=== PATIENT | female | born 1955 | race Caucasian/White ===

== ENCOUNTER 2017-01-13 06:29 | Day surgery (SDC) | payer OTHER ==
[~2017-01-13] VITALS: Ht 157.5 cm; Wt 84.5 kg
[~2017-01-13 06:29] MED LIST: ACET500C4 PO; ALBU8.5H IH; ASPI-1093 PO; CITA10TA68 PO; FLUT16H NASAL; GABA-531 PO; IPRAHFA IH; LEVO500 PO; MONT10TA21 PO; NAPR-58 PO; OMEP20 PO
[2017-01-13] MEDS ORDERED: SODIUM CHLORIDE 0.9% 1,000 ML IV ONE ×2 (06:46→07:00)
[2017-01-13] MEDS ORDERED: FentaNYL CITRATE-PF 100 MCG/2 ML VIAL ONE (07:54)
[2017-01-13] MEDS ORDERED: MIDAZOLAM HCL 2 MG/2 ML VIAL ONE (07:54)
[2017-01-13] MEDS ORDERED: MethylPREDNISolone SOD SUCC 125 MG/2 ML VIAL IVP ONE (08:45)
[2017-01-13] MEDS ORDERED: MethylPREDNISolone SOD SUCC 125 MG/2 ML VIAL ONE (09:46)
[2017-01-13] MEDS ORDERED: BENZOCAINE 20% 50 MCG/SPRAY 57 GM TP ONE (16:43)
[2017-01-13] MEDS ORDERED: ALBUTEROL SULFATE 2.5 MG/0.5 ML NEB SOLUTION NEB ONE (16:43)
[2017-01-13] MEDS ORDERED: LIDOCAINE HCL 2% 30 ML JELLY TP ONE (16:43)
[2017-01-13] MEDS ORDERED: LIDOCAINE HCL 4% 50 ML SOLUTION TP ONE (16:43)
[2017-01-13] MEDS ORDERED: OXYGEN THERAPY IH SCH (20:00)
== END 2017-01-13 11:05 | disposition home or self-care (01) ==
LOC: SURGERY 06:29
PROVIDERS: ATTEND Internal Medicine Critical Care Medicine
DX: J38.4 Edema of larynx (principal); B37.0 Candidal stomatitis; J45.909 Unspecified asthma, uncomplicated; F17.210 Nicotine dependence, cigarettes, uncomplicated; Z79.82 Long term (current) use of aspirin
CPT/HCPCS: 31623; 31624; 71010; 87015 ×2; 87070; 87101; 87147; 87205; 87220; 88108; 88312; 94640; J2250; J2930; J3010; J7030